=== PATIENT | female | born 1970 ===

== ENCOUNTER → 2020-07-27 | Outpatient (CLI) | payer OTHER | LOC: COL.RAD 13:52 | DX: E04.9 Nontoxic goiter, unspecified (principal); E83.52 Hypercalcemia ==

== ENCOUNTER → 2020-07-31 | Outpatient (CLI) | payer OTHER ==
[2020-07-31 18:46] LABS: ALBUMIN 4.4 gm/dL (3.5-5.0); CHOLESTEROL RISK RATIO 3.2; CREATININE, serum 0.95 (0.52-1.25); MAGNESIUM 2.2 mg/dL (1.6-2.3); PHOSPHOROUS 3.7 mg/dL (2.5-4.5); POTASSIUM 4.1 mmol/L (3.4-5.0)
[2020-07-31 19:15] LABS: THYROID STIMULATING HORMONE 1.04 uIU/mL (0.465-4.680)
[2020-07-31 21:04] LABS: COLLECTION METHOD CLEAN CATCH
[2020-07-31 21:10] LABS: PH 7 (5-8); SQUAMOUS EPITHELIAL 0-2 /hpf; URINE APPEARANCE Clear; URINE BACTERIA None Seen /hpf; URINE BILIRUBIN Negative (NEGATIVE); URINE BLOOD Negative (NEGATIVE); URINE COLOR Yellow; URINE GLUCOSE 3+ (NEGATIVE); URINE KETONE Negative (NEGATIVE); URINE LEUKOCYTE ESTERASE Negative (NEGATIVE); URINE NITRATE Negative (NEGATIVE); URINE PROTEIN(semi-quant) Negative (NEGATIVE); URINE RBC 0-2 /hpf; URINE UROBILINOGEN Negative (NEGATIVE)
[2020-08-01 17:28] LABS: URINE MICROALBUMIN 0.6 mg/dL (0.0-1.7)
== END ==
LOC: COL.LAB 17:34
PROVIDERS: Family Medicine
DX: E83.52 Hypercalcemia (principal); E04.9 Nontoxic goiter, unspecified; E11.65 Type 2 diabetes mellitus with hyperglycemia